=== PATIENT | male | born 1960 | race Caucasian/White ===

== ENCOUNTER 2016-12-22 02:03 | Inpatient (IN) | payer OTHER ==
[~2016-12-22] VITALS: Ht 190.5 cm; Wt 149.7 kg
[~2016-12-22 02:03] MED LIST: FLONASE16 G1 BOTH NARES; FLUTICASONE PRO16 GM; LORATADINE10 M2 PO; MOTRIN800 MG PO; MULTIVITAMIN1 EAC2 PO; NORCO 5/3251 TABLET PO
[2016-12-22 04:01] LABS: HEMATOCRIT 43.5 % (38.0-50.0); MCH 30.4 PG (29.0-34.0); MCHC 34.5 G/DL (30.0-36.0); MCV 88.2 FL (86-99); MEAN PLAT.VOLUME 9.3 uM^3 (9.0-12.4); PLATELET COUNT 222 K/uL (156-360); RBC DIS.WIDTH-CV 13.2 % (11.8-14.6); RBC DIS.WIDTH-SD 41.8 % (39-53); RED BLOOD COUNT 4.93 M/uL (4.00-5.50); WHITE BLOOD COUNT 10.1 K/uL (4.1-10.2)
[2016-12-22 04:16] LABS: INTER. NORMALIZED RATIO 1.1; PROTHROMBIN TIME 10.7 (9.2-11.2); PTT 26.4 (25-32)
[2016-12-22 04:41] LABS: CHLORIDE 106 mEq/L (99-109); POTASSIUM 4.4 mEq/L (3.7-5.4); SODIUM 137 mEq/L (136-147)
[2016-12-22 04:43] LABS: GLUCOSE 150 mg/dL (70-99)
[2016-12-22 04:44] LABS: ANION GAP 7 MEQ/L (2-14)
[2016-12-22 04:47] LABS: GFR ESTIMATE (CALCULATED) > 59 mL/min/
[2016-12-22 04:48] LABS: UREA NITROGEN (BUN) 15 mg/dL (9-23)
[2016-12-22 08:16] VITALS: BP 156/89
[2016-12-22 11:16] VITALS: BP 138/89
[2016-12-22 15:38] VITALS: BP 139/95
[2016-12-22] MEDS ORDERED: ELIQUIS5 MG PO (16:36)
[2016-12-23 07:08] LABS: Estimated Average Glucose 163 mg/dL (70-123); HEMOGLOBIN A1c (GLYCOHEMOGLOB) 7.3 % HGB (Below 5.7)
== END 2016-12-22 17:29 | disposition home or self-care (01) | DRG 299 ==
LOC: EME 02:03 → EDOF 06:56 → 4SOUTH 07:56
PROVIDERS: Emergency Medicine
DX: I82.422 Acute embolism and thrombosis of left iliac vein (principal); I26.99 Other pulmonary embolism without acute cor pulmonale; S76.119D Strain of unspecified quadriceps muscle, fascia and tendon, subsequent encounter; X58.XXXD Exposure to other specified factors, subsequent encounter; E66.9 Obesity, unspecified; Z68.41 Body mass index [BMI] 40.0-44.9, adult
CPT/HCPCS: 71275; 80048; 83036; 85027; 85610; 85730; 93005; 93971; 99281; 99285; J7030